=== PATIENT | male | born 2005 | race Caucasian/White ===

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

== ENCOUNTER 2025-06-05 17:38 | Emergency (ER) | payer OTHER ==
[~2025-06-05] VITALS: Ht 180.3 cm; Wt 90.7 kg
[2025-06-05 18:03] VITALS: BP 120/83; TEMP 98.1
[2025-06-05] MEDS ORDERED: IBUPROFEN 600 MG TABLET ONE (18:35)
[2025-06-05] MEDS: IBUPROFEN 600 MG TABLET PO ONE (18:38)
[2025-06-05 19:14] VITALS: O2SAT 99
== END 2025-06-05 19:15 | disposition home or self-care (01) ==
LOC: ER 17:47
DX: S93.402A Sprain of unspecified ligament of left ankle, initial encounter (principal); M25.562 Pain in left knee; W01.0XXA Fall on same level from slipping, tripping and stumbling without subsequent striking against object, initial encounter; Y93.89 Activity, other specified; Y92.89 Other specified places as the place of occurrence of the external cause; Y99.9 Unspecified external cause status
CPT/HCPCS: 73562; 73610-TC